=== PATIENT | female | born 1995 | race Caucasian/White ===

== ENCOUNTER 2016-12-08 10:38 | Emergency (ER) | payer OTHER ==
[2016-12-08 10:35] LABS: INFLUENZA A NEG (NEG); INFLUENZA B NEG (NEG)
[~2016-12-08 10:38] MED LIST: ABILIFY PO; ALBUTEROL17 GM INH; ATARAX; BACTRIM DS TABL1 TA1 PO; BACTRIM DS TABL1 TAB PO; FLEXERIL PO; FLEXERIL10 MG PO; FLOMAX0.4 M1 PO; KETOPROFEN PO; LORTAB 5/500 TA1 TA2 PO; NEURONTIN PO; NEURONTIN800 MG DOB; NO MEDICATIONS; PEPCID AC20 M2 PO; PEPCID PO; PHENERGAN PO; PRENATAL CAPSU1 EACH PO; PRENATAL1 TA1; REGLAN10 MG PO; ROBITUSSIN A-C S5 ML PO; STERAPRED5 MG/DOSE1 PO; TAMIFLU75 M1 PO; TRAZODONE PO; TYLENOL #3 PO; VIBRAMYCIN100 M1 PO; VICODIN 5/1 TAB 5/50 PO; VICODIN 5/500 T1 TAB PO; VIVANCE PO; ZOFRAN PO; ZOLOFT PO
== END 2016-12-08 11:30 | disposition home or self-care (01) ==
LOC: CFTX 10:38
PROVIDERS: Nurse Practitioner
DX: L03.115 Cellulitis of right lower limb (principal); J06.9 Acute upper respiratory infection, unspecified; J45.909 Unspecified asthma, uncomplicated; Z88.1 Allergy status to other antibiotic agents; F17.210 Nicotine dependence, cigarettes, uncomplicated; Z87.442 Personal history of urinary calculi
CPT/HCPCS: 84703; 87651; 87804; 99283

== ENCOUNTER 2017-01-08 22:45 | Emergency (ER) | payer OTHER | END 2017-01-08 23:00 | disposition left against medical advice (07) | LOC: CED 22:45 | DX: Z53.21 Procedure and treatment not carried out due to patient leaving prior to being seen by health care provider (principal) ==

== ENCOUNTER 2017-01-10 20:38 | Emergency (ER) | payer OTHER ==
[2017-01-10 20:35] LABS: URINE SOURCE CLEAN CATCH
[2017-01-10 20:39] LABS: URINE APPEARANCE HAZY; URINE BILIRUBIN NEG (NEG); URINE BLOOD 1+ (NEG); URINE COLOR YELLOW; URINE GLUCOSE NEG (NORM); URINE KETONE NEG (NEG); URINE LEUKOCYTE ESTERASE 1+ (NEG); URINE NITRATE NEG (NEG); URINE PROTEIN NEG (NEG); URINE UROBILINOGEN 0.2 MG/DL (NORM)
[2017-01-10 20:40] LABS: MICRO INDICATED? YES
[2017-01-10 20:47] LABS: CULTURE INDICATED? YES; URINE AMORPHOUS SEDIMENT AMORP PHOSPHATES; URINE BACTERIA NEG (NEG); URINE MUCUS PRESENT; URINE SQUAMOUS EPITHELIAL CELL MODERATE /[HPF]; URINE WBC 100-200 /[HPF] (0-5)
[2017-01-14 12:53] LABS: CHLAMYDIA TRACH Not Detected (Not Detected); N GONOR Detected (Not Detected)
== END 2017-01-10 21:14 | disposition home or self-care (01) ==
LOC: CED 20:38
PROVIDERS: Emergency Medicine
DX: A54.03 Gonococcal cervicitis, unspecified (principal); N39.0 Urinary tract infection, site not specified; I10 Essential (primary) hypertension; J45.909 Unspecified asthma, uncomplicated; F41.9 Anxiety disorder, unspecified; F17.210 Nicotine dependence, cigarettes, uncomplicated; Z87.442 Personal history of urinary calculi; Z88.8 Allergy status to other drugs, medicaments and biological substances
CPT/HCPCS: 81003; 84703; 87086; 87491; 87591; 87808; 87905; 96372; 99283; 99284; J0696

== ENCOUNTER 2017-02-19 05:56 | Emergency (ER) | payer OTHER ==
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
[2017-02-19 07:03] LABS: URINE SOURCE CLEAN CATCH
[2017-02-19 07:34] LABS: BASOPHIL# 0.1 X10e3 (0-0.3); BASOPHIL% 0.6 % (0-2.5); EOSINOPHIL# 0.1 X10e3 (0-0.7); EOSINOPHIL% 1.6 % (0.0-7.0); HEMATOCRIT 41.2 % (35.0-45.0); HEMOGLOBIN 13.9 gm/dL (12.0-16.0); LYMPHOCYTE# 2.4 X10e3 (1.0-3.5); MEAN CORPUSCULAR HEMOGLOBIN 30.7 PG (28-34); MEAN CORPUSCULAR HGB CONC 33.7 g/dL (30-36); MEAN PLATELET VOLUME 8.1 FL (6.5-11.5); MONOCYTE# 0.7 X10e3 (0-1.0); MONOCYTE% 9.3 % (3.0-12.0); NEUTROPHIL# 4.5 X10e3 (1.5-7.1); NEUTROPHIL% 57.5 % (40-75); PLATELET COUNT 194 X10e3 (140-420); RED BLOOD COUNT 4.53 X10e (3.90-5.30); RED CELL DISTRIBUTION WIDTH 12.9 % (11.0-15.5); WHITE BLOOD COUNT 7.9 X10e3 (4.0-10.5)
[2017-02-19 07:40] LABS: DIFF IND NO
[2017-02-19 07:48] LABS: AMPHETAMINE NEG (NEG); BARBITURATES NEG (NEG); BENZODIAZEPINES NEG (NEG); COCAINE NEG (NEG); MARIJUANA NEG (NEG); OPIATES NEG (NEG); TRICYCLIC ANTIDEPRESSANTS NEG (NEG); U METHADONE NEG (NEG)
[2017-02-19 07:52] LABS: URINE APPEARANCE CLEAR; URINE BILIRUBIN NEG (NEG); URINE BLOOD NEG (NEG); URINE COLOR YELLOW; URINE GLUCOSE NEG (NEG); URINE KETONE NEG (NEG); URINE LEUKOCYTE ESTERASE TRACE (NEG); URINE NITRATE NEG (NEG); URINE PH 6.5 (5-8); URINE PROTEIN NEG (NEG); URINE SPECIFIC GRAVITY 1.023 (1.003-1.035); URINE UROBILINOGEN 0.2 MG/DL (NEG)
[2017-02-19 07:54] LABS: CULTURE INDICATED? YES; URBCS1 AUWI 0-2 /[HPF] (0-2); URINE BACTERIA AUWI 1+ (NEGATIVE); URINE SQUAMOUS EPITHELIAL CELL FEW /[HPF]
[2017-02-19 08:03] LABS: BLOOD UREA NITROGEN 20 mg/dL (9-23); CALCIUM SERUM 9.6 mg/dL (8.4-10.2); CARBON DIOXIDE 23 mmol/L (22-31); CHLORIDE 106 mmol/L (100-111); CREATININE SERUM 0.5 mg/dL (0.6-1.4); GLOM FILT RATE Estimated 136.4 mL/min (>60); GLUCOSE FASTING 90 mg/dL (70-110); POTASSIUM 3.9 mmol/L (3.5-5.1); SODIUM 138 mmol/L (135-145)
[2017-02-19 08:04] LABS: ALCOHOL BLOOD <5 mg/dL (0)
== END 2017-02-19 12:15 | disposition home or self-care (01) ==
LOC: CED 05:56 → CFTX 06:50 → CED 12:15
PROVIDERS: Emergency Medicine
DX: S19.9XXA Unspecified injury of neck, initial encounter (principal); T74.21XA Adult sexual abuse, confirmed, initial encounter
CPT/HCPCS: 36415; 71010; 80048; 80307; 81003; 85025; 87086; 87088; 87186; 99284; G0480

== ENCOUNTER 2017-02-23 13:55 | Emergency (ER) | payer OTHER ==
[2017-02-23 14:51] LABS: URINE SOURCE CLEAN CATCH
[2017-02-23 14:56] LABS: URINE APPEARANCE CLEAR; URINE BILIRUBIN NEG (NEG); URINE BLOOD 1+ (NEG); URINE COLOR YELLOW; URINE GLUCOSE NEG (NEG); URINE KETONE NEG (NEG); URINE LEUKOCYTE ESTERASE NEG (NEG); URINE NITRATE NEG (NEG); URINE PH 5.5 (5-8); URINE PROTEIN NEG (NEG); URINE SPECIFIC GRAVITY 1.034 (1.003-1.035); URINE UROBILINOGEN 0.2 MG/DL (NEG)
[2017-02-23 14:58] LABS: URINE BACTERIA AUWI NEG (NEGATIVE); URINE SQUAMOUS EPITHELIAL CELL NONE SEEN /[HPF]
[2017-02-23 15:08] LABS: CULTURE INDICATED? NO
[2017-02-26 10:29] LABS: CHLAMYDIA TRACH Detected (Not Detected); N GONOR Not Detected (Not Detected)
== END 2017-02-23 15:40 | disposition home or self-care (01) ==
LOC: CED 13:55 → CFTX 13:55 → CED 14:41 → CFTX 15:40
PROVIDERS: Physician Assistant Medical
DX: Z20.2 Contact with and (suspected) exposure to infections with a predominantly sexual mode of transmission (principal); F41.9 Anxiety disorder, unspecified; F17.210 Nicotine dependence, cigarettes, uncomplicated; Z88.1 Allergy status to other antibiotic agents; Z88.8 Allergy status to other drugs, medicaments and biological substances
CPT/HCPCS: 81003; 84703; 87491; 87591; 87808; 87905; 99284; J0696

== ENCOUNTER 2017-03-26 21:48 | Emergency (ER) | payer OTHER ==
[~2017-03-26] VITALS: Ht 157.5 cm; Wt 65.8 kg
--- NOTE | ~2017-03-26 | CT4 ---
[facility] A Service of [facility] & [facility] RADIOLOGY TEXT RESULTS PATIENT: CHELSEA APARICIO LOCATION: [facility] : [birth year] UNIT #: [id number] AGE: [address]: Danny Randolph MD SEX: F ORDER DR: [id number] [facility] [address] [place], [place] [address] [id number] E MR#: [id number] Acc #: [id number] NAME: CHELSEA APARICIO : 1995 SEX: F STUDY DATE/TIME: 03/26/2017 23:40 UNIT: [facility] ROOM: STUDY DESCRIPTION: CT Abd and Pelv Wo Cont Attending Physician: Alexander Randolph M.D. Ordering Physician: Ed Doctor [id number] [facility] Primary Care Physician: Mary Ann Cuevas A.P.R.N. MEDICAL IMAGING REPORT This report is preliminary unless electronic signature is present EXAM Abdomen and pelvis CT, 03/26 at 23:40 INDICATIONS Left flank pain with nausea, vomiting, and diarrhea for the last 2-3 days. History of kidney stones. TECHNIQUE Axial images were obtained through the abdomen and pelvis without contrast. Multiplanar reformats were obtained. This CT exam was performed with one or more of the following radiation dose reduction techniques: automatic exposure control, adjustment of mA and/or kV according to patient size, and iterative reconstruction. COMPARISON 03/28/2011 FINDINGS ABDOMEN: Lung bases are clear. The gallbladder unremarkable. There is a tiny nonobstructing stone in the lower pole of the right kidney. No other definite stones are seen. There are no ureteral stones on either side, and there is no hydronephrosis. The unenhanced solid organs are otherwise normal. The unopacified GI tract is grossly normal. No free fluid is seen. PELVIS: There are no lower ureteral stones. The bladder is normal. Solid pelvic organs are unremarkable. The appendix is normal. The remainder of the unopacified GI tract is grossly normal as well. There are bilateral L3 pars defects. No spondylolisthesis is seen. IMPRESSION 1. No acute findings in the abdomen or pelvis. [facility] A Service of [facility] & [facility] RADIOLOGY TEXT RESULTS PATIENT: CHELSEA APARICIO LOCATION: [facility] #: [id number] : [birth year] UNIT #: [id number] AGE: [address]: Danny Randolph MD SEX: F ORDER DR: 2. Tiny nonobstructing stone in the right kidney. No ureteral stones on either side, and no hydronephrosis. 3. Normal unopacified GI tract, including the appendix. 4. Incidental note is made of bilateral L3 pars defects with no spondylolisthesis. Dictated by... Haim Giles Jr., M.D. THIS IS AN ELECTRONICALLY VERIFIED REPORT Haim Giles Jr., M.D. at 03/27/2017 8:50 PM REJI/thad TD: 03/27/2017 10:55 JOB #: [id number] MEDICAL IMAGING REPORT Page 1 of 1 COPY
[2017-03-26 22:48] LABS: URINE SOURCE CLEAN CATCH
[2017-03-26 22:52] LABS: URINE APPEARANCE CLEAR; URINE BILIRUBIN NEG (NEG); URINE BLOOD 1+ (NEG); URINE COLOR YELLOW; URINE GLUCOSE NEG (NEG); URINE KETONE NEG (NEG); URINE LEUKOCYTE ESTERASE NEG (NEG); URINE NITRATE NEG (NEG); URINE PH 5.5 (5-8); URINE PROTEIN NEG (NEG); URINE SPECIFIC GRAVITY 1.034 (1.003-1.035)
[2017-03-26 22:54] LABS: CULTURE INDICATED? YES; URINE BACTERIA AUWI NEG (NEGATIVE); URINE SQUAMOUS EPITHELIAL CELL OCC /[HPF]
[2017-03-27 01:06] LABS: BASOPHIL# 0.1 X10e3 (0-0.3); DIFF IND YES; EOSINOPHIL# 0.2 X10e3 (0-0.7); HEMATOCRIT 39.5 % (35.0-45.0); HEMOGLOBIN 13.4 gm/dL (12.0-16.0); LYMPHOCYTE# 3.5 X10e3 (1.0-3.5); LYMPHOCYTE% 50.1 % (17.0-45.0); MEAN CELL VOLUME 89.7 FL (83-96); MEAN CORPUSCULAR HEMOGLOBIN 30.5 PG (28-34); MEAN PLATELET VOLUME 7.9 FL (6.5-11.5); MONOCYTE# 0.7 X10e3 (0-1.0); MONOCYTE% 9.7 % (3.0-12.0); NEUTROPHIL# 2.5 X10e3 (1.5-7.1); NEUTROPHIL% 36.2 % (40-75); PLATELET COUNT 209 X10e3 (140-420); RED CELL DISTRIBUTION WIDTH 12.9 % (11.0-15.5); WHITE BLOOD COUNT 6.9 X10e3 (4.0-10.5)
[2017-03-27 01:21] LABS: ALBUMIN SERUM 4.4 g/dL (3.5-5.0); BILIRUBIN, DIRECT 0.1 mg/dL (0.0-0.2); BILIRUBIN,INDIRECT 1.5 mg/dL (0.0-0.9); BILIRUBIN,TOTAL 1.6 mg/dL (0.2-2.0); CALCIUM SERUM 8.9 mg/dL (8.4-10.2); CREATININE SERUM 0.5 mg/dL (0.6-1.4); GLOM FILT RATE Estimated 135.5 mL/min (>60); POTASSIUM 3.6 mmol/L (3.5-5.1); PROTEIN TOTAL SERUM 6.9 g/dL (6.0-8.3)
[2017-03-27 01:51] LABS: PLATELET ESTIMATE NORMAL (NORMAL)
[2017-03-27 01:52] LABS: RBC NORMAL YES
[2017-03-31 09:50] LABS: CHLAMYDIA TRACH Not Detected (Not Detected); N GONOR Not Detected (Not Detected)
== END 2017-03-27 02:15 | disposition home or self-care (01) ==
LOC: CED 21:48
PROVIDERS: Emergency Medicine
DX: N93.8 Other specified abnormal uterine and vaginal bleeding (principal); F17.210 Nicotine dependence, cigarettes, uncomplicated; Z87.442 Personal history of urinary calculi; Z88.8 Allergy status to other drugs, medicaments and biological substances
CPT/HCPCS: 36415; 74176; 80048; 80076; 81003; 82150; 85025; 87086; 87491; 87591; 87808; 87905; 96372; 99284; J1885

== ENCOUNTER 2017-03-31 14:55 | Emergency (ER) | payer OTHER ==
[~2017-03-31] VITALS: Ht 157.5 cm; Wt 63.5 kg
[2017-04-03 10:51] LABS: CHLAMYDIA TRACH Not Detected (Not Detected); N GONOR Not Detected (Not Detected)
== END 2017-03-31 17:00 | disposition home or self-care (01) ==
LOC: CFTX 14:55 → CED 14:55 → CFTX 15:20
PROVIDERS: Physician Assistant Medical
DX: N89.8 Other specified noninflammatory disorders of vagina (principal); F41.9 Anxiety disorder, unspecified; F17.210 Nicotine dependence, cigarettes, uncomplicated; Z88.8 Allergy status to other drugs, medicaments and biological substances
CPT/HCPCS: 87491; 87591; 87808; 87905; 99283

== ENCOUNTER 2017-05-21 02:32 | Emergency (ER) | payer OTHER ==
[~2017-05-21] VITALS: Ht 157.5 cm; Wt 63.5 kg
== END 2017-05-21 05:02 | disposition left against medical advice (07) ==
LOC: CED 02:32
DX: Z53.21 Procedure and treatment not carried out due to patient leaving prior to being seen by health care provider (principal)
CPT/HCPCS: 87880